=== PATIENT | male | born 1965 | race Caucasian/White ===

== ENCOUNTER 2020-05-21 11:50 | Inpatient (IN) | payer SELFPAY ==
[2020-05-21] VITALS (19 sets, daily range): BP systolic 106–176; BP diastolic 55–121; PULSE 86–109; RESP 10–20; TEMP 36.4–37.3; O2SAT 92–100; BMI 20.9
--- NOTE | 2020-05-21 12:21 | CT_ITS ---
WS: [id number] CT ABDOMEN AND PELVIS WITH CONTRAST HISTORY: abdominal pain, fever TECHNIQUE: Imaging performed of the abdomen and pelvis with IV contrast. Single phase imaging of the abdomen. Coronal and sagittal reformats are submitted. All CT scans at [facility] use at least one of these dose optimization techniques: automated exposure control; mA and/or kV adjustment per patient size (includes targeted exams where dose is matched to clinical indication); or iterativ e reconstruction. IV CONTRAST: Omnipaque 300; 95 mL IV. Oral contrast: No DLP: 253.23 mGy.cm COMPARISON: None available. Lower thorax: Chronic emphysematous changes at the lung bases. Heart is normal size. No hiatal hernia . Liver/biliary system: Normal size with no intrahepatic dilatation. Gallbladder: Normal. No gallstones or wall thickening. No pericholecystic fluid. Pancreas: Edematous pancreas. Pancreatic head and body are poorly visualized and appear edematous. Spleen: Normal. Adrenal glands: Normal. Right kidney: Horseshoe kidney. No obstruction. Left kidney: Horseshoe kidney. No obstruction. 1.5 cm cortical cyst posteriorly. Aorta: Heavy calcification within the abdominal aorta. There is a large amount of mesenteric edema and mild diffuse ascites throughout the abdomen. There ar e several foci of free air scattered within the peritoneal cavity. There is an abnormal appearance to the rectum and the distal sigmoid. There is infiltration of the perirectal fat with edema and also f oci of air. Marked thickening of the sigmoid colon. Possible mass at the rectosigmoid junction. Lymphadenopathy: No definite adenopathy is identified. Lymph nodes would easily be obscured with this amount of edema and peritoneal infiltration. Free fluid: There is mild diffuse ascites. GI tract: Mildly distended loops of small bowel. There is an abnormal appearance of the descending an d sigmoid colon. There is marked wall thickening and edema. Possible mass at the rectosigmoid junctio n. This free air adjacent to the distal colon. Abdominal wall: Unremarkable abdominal wall. No hernia. Pelvis: Minimally distended bladder. Prostate gland calcifications. Bones: Nonacute fracture RIGHT L3 transverse process. CT/CT abdomen pelvis w con* [id number] IMPRESSION: 1. Intraperitoneal free air with diffuse heterogeneous ascites suspicious for peritonitis. 2. Abnormal thickening of the sigmoid colon. Possible mass at the rectosigmoid junction where there is a large amount of air and this may be the site of the perforation. Perforated colon cancer versus severe infection. 3. Edematous pancreas. Pancreas is poorly visualized. 4. Horseshoe kidneys. 5. Additional abnormal enhancement and thickening of the majority of the small bowel and colon. Notified Shannan Fatima MD at 05/21/2020 2:41 PM.
[2020-05-21] MEDS: ondansetron 2 mg/ML SDV 2 mL 4 MG IVP (12:47)
[2020-05-21] MEDS: HYDROmorphone 1 mg/mL INJ 1 mL 0.5 MG IVP (12:47)
[2020-05-21] MEDS: sodium chloride 0.9% 1,000 ML 999 ML IV (12:48)
[2020-05-21 13:04] LABS: Basophils % 0.2 %; Eosinophils % 0.2 %; Hematocrit 45.3 % (42.0-52.0); Hemoglobin 15.1 g/dL (11.7-16.6); Mean Corpuscular HGB Conc 33.3 g/dL (30.0-36.0); Mean Corpuscular Volume 99.1 fL (80-94); Mean Platelet Volume 9.3 fL (7.4-10.4); Monocytes # 0.2 10^3/uL (0.2-0.9); Monocytes % 4.1 %; Neutrophils # 4.09 10^3/uL (1.8-7.7); Neutrophils % 75.6 %; Nucleated Red Blood Cells % 0 %; Platelet Count 231 10^3/cmm (130-400); Red Blood Count 4.57 10^6/uL (4.1-5.3); White Blood Count 5.4 10^3/uL (4.0-10.0)
[2020-05-21 13:17] LABS: Alanine Aminotransferase 20 U/L (0-41); Albumin Level 3.7 g/dL (3.5-5.2); Alkaline Phosphatase 56 IU/L (40-130); Anion Gap 14.1 (5-19); Aspartate Amino Transferase 20 U/L (0-40); Blood Urea Nitrogen 19 mg/dL (6-20); C Reactive Protein 106.5 mg/L (0.0-4.9); Calcium 8.7 mg/dL (8.5-10.5); Carbon Dioxide 26 mmol/L (22-29); Chloride 98 mmol/L (98-107); Globulin 3.6 g/dL (1.3-4.6); Glomerular Filtration Rate 87.6 mL/min (90-130); Glucose 155 mg/dL (65-115); Lipase 12 U/L (13-60); Osmolality Calculated 283 mOsm/kg (285-295); Potassium 4.1 mmol/L (3.5-5.1); Sodium 134 mmol/L (136-145); Total Bilirubin 0.3 mg/dL (0.15-1.2); Total Protein 7.3 g/dL (6.6-8.7)
[2020-05-21 13:19] LABS: Lactic Sepsis W/Reflex 1.2 mmol/L (0.5-2.2)
--- NOTE | 2020-05-21 13:40 | ED_ITS ---
HPI - Abdominal Pain General: Chief Complaint: Abdominal Pain Stated Complaint: ABDOMINAL PAIN/ COVID EXPOSURE Time Seen by Provider: 05/21/20 11:51 History of Present Illness: HPI narrative: This patient is a 55-year-old male presenting with abdominal pain. He said he has been having pain in his stomach for about 3 weeks but it became intolerable today. He thinks he has been running a fever. He has not really had any shortness of breath but has had some cough. He denies nausea vomiting or diarrhea. He has been eating normally and has not had any weight loss. He said he ate something this morning and it did not seem to make his pain any worse. He was tested for COVID on Sunday at [facility] and the results are not available yet. MD elicited complaint: abdominal pain Pertinent past history: none Onset (ago): week(s) (3) Pain Consistency: constant Location: Periumbilical Severity: severe Quality: fullness and sharp Radiation: none Migration to: no migration Relieving factors: nothing Associated Symptoms: Reports diarrhea (Had loose stools after taking a laxative to try to relieve his pain) and fever(s); Denies change in bowel habits and constipation Review of Systems General: Reports: 10 or more systems reviewed and unremarkable except in HPI and below Const: Reports: fever(s) Eyes: Denies: change in vision ENMT: Denies: odynophagia Card: Denies: chest pain or swelling of feet/ankles Resp: Denies: dyspnea, productive cough or non-productive cough GI: Reports: diarrhea (Had loose stools after taking a laxative to try to relieve his pain); Denies: constipation or change in bowel habits : Denies: flank pain Musc: Denies: neck pain or back pain Skin/Breast: Denies: rash Neuro: Denies: headache(s), numbness in extremities or weakness in extremities Nelson/Lymph: Denies: easy bruising or easy bleeding PFSH ED PFSH: Surgical History H/O elbow surgery Social History Smoking and tobacco status: current every day smoker Alcohol intake: former Substance/Drug Use: current Substance/Drug use frequency: daily Substance/Drug use type: Marijuana Physical Exam Const: COMMON NORMALS: patient oriented x3, no limitations and alert GENERAL APPEARANCE: cooperative HENMT: HEAD & SCALP: normal to inspection FACE & SINUS: normal facial exam Eye: GENERAL EYE: appearance normal, both eyes and all related structures Neck/C-Spine: COMMON NORMALS: supple, no meningeal signs and no JVD Chest: COMMONS NORMALS: normal inspection of the chest Resp: COMMON NORMALS: normal respiratory effort, No use of accessory muscles and clear to auscultation bilaterally AUSCULTATION: clear to auscultation bilaterally Cardio: COMMON NORMALS: no JVD, regular rate, regular rhythm and No murmurs present (Cardio) RATE: regular rate RHYTHM: regular rhythm GI: AUSCULTATION: Yes Absent bowel sounds PALPATION: Yes Firmness to palpation present (GI), Yes Tenderness to palpation present (GI) (Severe pain to even light touch) and Yes Guarding due to palpation present (GI) Back/Pelvis: COMMON NORMALS: thoracic and lumbar spine normal to inspection Extremity: COMMON NORMALS: normal to inspection Neuro: COMMON NORMALS: patient oriented x3, moves all extremities, no focal motor deficits and no sensory deficits noted SENSORIUM/ORIENTATION: Yes alert MENINGEAL SIGNS: Yes no meningeal signs Psych: COMMON NORMALS: mental status grossly normal, cooperative and normal affect Skin: COMMON NORMALS: no rashes or lesions noted and turgor normal GENERAL SKIN EXAM: no rashes or lesions noted and turgor normal Course ED course: This patient presented with severe abdominal pain. He has had some fevers. His pains been going on for about 3 weeks but worsened suddenly today. CT shows free air and peritonitis with blood or peritoneal fluid on the CT. His labs are surprisingly good but he clinically looks quite ill. He was given antibiotics, fluids I consulted with surgery. We were able to hold the OR from starting a next case so that he could go emergently. Vital Signs: Vital signs: Vital Signs Temperature 98.7 F 05/24/20 11:37 Pulse Rate 78 05/24/20 11:37 Respiratory Rate 18 05/24/20 11:37 Blood Pressure 112/69 05/24/20 11:37 Pulse Oximetry 94 05/24/20 11:37 MDM - Abdominal Pain Lab Data: Labs: Lab Results 09/18/20 09/18/20 09/18/20 Range/Units 12:49 12:49 12:49 WBC 5.4 (4.0-10.0) 10^3/ uL RBC 4.57 (4.1-5.3) 10^6/u L Hgb 15.1 (11.7-16.6) g/dL Hct 45.3 (42.0-52.0) % MCV 99.1 H (80-94) fL MCH 33.0 (28.0-34.0) pg MCHC 33.3 (30.0-36.0) g/dL RDW 12.0 L (12.1-15.1) % Plt Count 231 (130-400) 10^3/c mm MPV 9.3 (7.4-10.4) fL Neut % (Auto) 75.6 % Lymph % (Auto) 19.0 % [place] % (Auto) 4.1 % Eos % (Auto) 0.2 % Baso % (Auto) 0.2 % Neut # (Auto) 4.09 (1.8-7.7) 10^3/u L Lymph # (Auto) 1.0 (0.8-4.8) 10^3/u L [place] # (Auto) 0.2 (0.2-0.9) 10^3/u L Eos # (Auto) 0.0 (0.0-0.8) 10^3/u L Baso # (Auto) 0.0 (0.0-0.1) 10^3/u L Nucleated RBC % (a uto) 0 % Nucleated RBCs # 0.0 /100WBC Sodium 134 L (136-145) mmol/L Potassium 4.1 (3.5-5.1) mmol/L Chloride 98 (98-107) mmol/L Carbon Dioxide 26 (22-29) mmol/L Anion Gap 14.1 (5-19) BUN 19 (6-20) mg/dL Creatinine 0.9 (0.7-1.2) mg/dL GFR Calculation 87.6 L (90-130) mL/min Glucose 155 H (65-115) mg/dL Calculated Osmolal ity 283 L (285-295) mOsm/k g Lactic Acid 1.2 (0.5-2.2) mmol/L Calcium 8.7 (8.5-10.5) mg/dL Total Bilirubin 0.3 (0.15-1.2) mg/dL AST 20 (0-40) U/L ALT 20 (0-41) U/L Alkaline Phosphata se 56 (40-130) IU/L C-Reactive Protein 106.5 H (0.0-4.9) mg/L Total Protein 7.3 (6.6-8.7) g/dL Albumin 3.7 (3.5-5.2) g/dL Globulin 3.6 (1.3-4.6) g/dL Lipase 12 L (13-60) U/L Urine Color (Yellow) Urine Appearance (CLEAR) Urine pH (5-7) Ur Specific [place] (1.005-1.030) Urine Protein (Negative) Urine Glucose (UA) (Normal) Urine Ketones (Negative) Urine Blood (Negative) Urine Nitrate (Negative) Urine Bilirubin (Negative) Urine Urobilinogen (Negative) mg/dL Ur Leukocyte [place] ase (Negative) SARS-CoV-2 Ag (Rap id) (Negative) 05/21/20 05/21/20 Range/Units 14:38 14:48 WBC (4.0-10.0) 10^3/ uL RBC (4.1-5.3) 10^6/u L Hgb (11.7-16.6) g/dL Hct (42.0-52.0) % MCV (80-94) fL MCH (28.0-34.0) pg MCHC (30.0-36.0) g/dL RDW (12.1-15.1) % Plt Count (130-400) 10^3/c mm MPV (7.4-10.4) fL Neut % (Auto) % Lymph % (Auto) % [place] % (Auto) % Eos % (Auto) % Baso % (Auto) % Neut # (Auto) (1.8-7.7) 10^3/u L Lymph # (Auto) (0.8-4.8) 10^3/u L [place] # (Auto) (0.2-0.9) 10^3/u L Eos # (Auto) (0.0-0.8) 10^3/u L Baso # (Auto) (0.0-0.1) 10^3/u L Nucleated RBC % (a uto) % Nucleated RBCs # /100WBC Sodium (136-145) mmol/L Potassium (3.5-5.1) mmol/L Chloride (98-107) mmol/L Carbon Dioxide (22-29) mmol/L Anion Gap (5-19) BUN (6-20) mg/dL Creatinine (0.7-1.2) mg/dL GFR Calculation (90-130) mL/min Glucose (65-115) mg/dL Calculated Osmolal ity (285-295) mOsm/k g Lactic Acid (0.5-2.2) mmol/L Calcium (8.5-10.5) mg/dL Total Bilirubin (0.15-1.2) mg/dL AST (0-40) U/L ALT (0-41) U/L Alkaline Phosphata se (40-130) IU/L C-Reactive Protein (0.0-4.9) mg/L Total Protein (6.6-8.7) g/dL Albumin (3.5-5.2) g/dL Globulin (1.3-4.6) g/dL Lipase (13-60) U/L Urine Color Yellow (Yellow) Urine Appearance Clear (CLEAR) Urine pH 5 (5-7) Ur Specific [place]it y 1.010 (1.005-1.030) Urine Protein Neg (Negative) Urine Glucose (UA) Norm (Normal) Urine Ketones 1+ H (Negative) Urine Blood Neg (Negative) Urine Nitrate Negative (Negative) Urine Bilirubin Neg (Negative) Urine Urobilinogen 1 H (Negative) mg/dL Ur Leukocyte [place] ase Negative (Negative) SARS-CoV-2 Ag (Rap id) Negative (Negative) Discharge Plan Discharge Admit Provider: Edd Oh Discharge Date/Time: 05/21/20 16:17 Coding Level of Care Code ED Alumni Relations Officer for [facility] Fwd Exam Comprehensive
--- NOTE | 2020-05-21 14:05 | PC.NURSE ---
REPORT RECEIVED FROM [facility].
[2020-05-21] MEDS: iohexol 300 mg/mL 100 mL Btl IV (14:19)
[2020-05-21 15:05] LABS: Add Urine Microscopic? NO
[2020-05-21 15:07] LABS: Bilirubin Urine Neg (Negative); Blood Urine Neg (Negative); Glucose Urine UA Norm (Normal); Ketones Urine 1+ (Negative); Leukocyte Esterase Urine Negative (Negative); Nitrate Urine Negative (Negative); Protein Urine Neg (Negative); Urine Appearance Clear (CLEAR); Urine Color Yellow (Yellow); Urobilinogen Urine 1 mg/dL (Negative); pH Urine 5 (5-7)
--- NOTE | 2020-05-21 15:30 | PM.HP ---
Providers/Chief Complaint Admitting Physician: Edd Oh MD Chief Complaint: ABDOMINAL PAIN/ COVID EXPOSURE History of Present Illness Chief Complaint: Abdominal pain History of present illness: Mr. Jean Carlos Haskins is a 55 year old male worsening abdominal pain as he has been having pain for the past 2 weeks. As of today patient's symptoms got worse and he came to the emergency department with diffuse abdominal pain nothing seems to make it better or worse and undergone a CT scan of the abdomen and pelvis with descriptions below. He reports fevers and chills and he was tested for COVID 19 as a rapid test that came back negative Patient reports that he never had a colonoscopy before General surgery was consulted for further evaluation potential intervention CT scan of the abdomen and pelvis: Lower thorax: Chronic emphysematous changes at the lung bases. Heart is normal size. No hiatal hernia. Liver/biliary system: Normal size with no intrahepatic dilatation. Gallbladder: Normal. No gallstones or wall thickening. No pericholecystic fluid. Pancreas: Edematous pancreas. Pancreatic head and body are poorly visualized and appear edematous. Spleen: Normal. Adrenal glands: Normal. Right kidney: Horseshoe kidney. No obstruction. Left kidney: Horseshoe kidney. No obstruction. 1.5 cm cortical cyst posteriorly. Aorta: Heavy calcification within the abdominal aorta. There is a large amount of mesenteric edema and mild diffuse ascites throughout the abdomen. There are several foci of free air scattered within the peritoneal cavity. There is an abnormal appearance to the rectum and the distal sigmoid. There is infiltration of the perirectal fat with edema and also foci of air. Marked thickening of the sigmoid colon. Possible mass at the rectosigmoid junction. Lymphadenopathy: No definite adenopathy is identified. Lymph nodes would easily be obscured with this amount of edema and peritoneal infiltration. Free fluid: There is mild diffuse ascites. GI tract: Mildly distended loops of small bowel. There is an abnormal appearance of the descending and sigmoid colon. There is marked wall thickening and edema. Possible mass at the rectosigmoid junction. This free air adjacent to the distal colon. Abdominal wall: Unremarkable abdominal wall. No hernia. Pelvis: Minimally distended bladder. Prostate gland calcifications. Bones: Nonacute fracture RIGHT L3 transverse process. CT/CT abdomen pelvis w con* [id number] IMPRESSION: 1. Intraperitoneal free air with diffuse heterogeneous ascites suspicious for peritonitis. 2. Abnormal thickening of the sigmoid colon. Possible mass at the rectosigmoid junction where there is a large amount of air and this may be the site of the perforation. Perforated colon cancer versus severe infection. 3. Edematous pancreas. Pancreas is poorly visualized. 4. Horseshoe kidneys. 5. Additional abnormal enhancement and thickening of the majority of the small bowel and colon. Patient was seen in the emergency department room #13 Review of Systems General: Reports: 10 or more systems reviewed and unremarkable except in HPI and below Medications/Allergies Home Medications Medication Instructions Recorded Confirmed Last Taken Type No Known Home Medications 05/21/20 05/21/20 Unknown History Allergies Allergy/AdvReac Type Severity Reaction Status Date / Time No Known Allergies Allergy Unverified 05/21/20 15:41 PFSH Acute PFSH: Surgical History H/O elbow surgery Social History Smoking and tobacco status: current every day smoker Alcohol intake: former Substance/Drug Use: current Substance/Drug use frequency: daily Substance/Drug use type: Marijuana Vitals/I&O/Wt Last Vital Signs Temp 97.5 F L 05/21/20 11:51 Pulse 97 05/21/20 14:02 Resp 18 05/21/20 14:02 BP 106/55 05/21/20 14:02 Pulse Ox 95 05/21/20 14:04 Weight last 48 hrs Weight 150 lb Physical Exam Narrative: EXAM NARRATIVE: Patient is conscious alert oriented X3 BMI 21 Head and neck examination PERRLA no masses no cervical lymphadenopathy no jaundice Cardiac examination audible S1-S2 no murmurs no gallops no arrhythmias Chest is clear bilateral,abscence of Rhonchi or wheezes,no surgical emphysema Abdomen diffusely tender with guarding,rigidity;signs of peritonitis Extremities no cyanosis no clubbing no edema Data : 05/21/20 12:49 05/21/20 12:49 A&P Assessment and plan (1) Perforated viscus: After history taking physical examination and reviewing the chart with my personal interpretation of the CT scan images likely the patient had a perforated sigmoid colon mass,concerning particularly that the patient never had a colonoscopy before. We will plan to perform an urgent diagnostic laparoscopy possible laparotomy possible bowel resection possible colostomy. Assurance and education All questions have been answered and all concerns have been addressed to patient's satisfaction. Status: Acute Attestations Medical Necessity Statement*: Expecting hospitalization past 2 midnights for continuity of medical and surgical care Time Spent in Patient Care: (>than 50% of time spent in counselling and/or direct pt care on unit). Coding Level of Care Code Acute Patient Service Rep for [facility] Fwd Diagnoses Perforated viscus R19.8
[2020-05-21 15:31] LABS: SARS Covid-2 Antigen Negative (Negative)
[2020-05-21] MEDS: ceFOXitin 2,000 MG in sodium chloride 0.9% (plus) 50 ML 100 MG IV (15:42)
--- NOTE | 2020-05-21 15:51 | ANES.PREANE2 ---
Pre-Anesthetic Assessment Pre-Anesthetic Assessment: Height/Weight: Height 1.8 m Weight 68.039 kg Temp Pulse Resp BP Pulse Ox 97.5 F L 106 H 14 127/79 92 05/21/20 11:51 05/21/20 15:41 05/21/20 15:41 05/21/20 15:41 05/21/20 15:41 Preop Diagnosis: perforated bowel Proposed Procedure: Operation Date: 05/21/20 16:00 Proposed Procedures p Exploratory Laparotomy poss.....?...(for perfed bowel)(Not Applicable) - Edd Oh MD Familial anesthetic complications: none Was Beta Beni taken within 24 hours: N/A Last intake: Intake Last Liquid Date 05/21/20 Last Liquid Time 15:25 Last Solid Date 05/21/20 Last Solid Time 08:00 Social: Social History: Tobacco Comment: marijuana last week Exam: Pre-Anes Outpt Exam: alert, oriented x 3, clear to auscultation bilaterally and regular rate & rhythm Airway: Cervical ROM: WNL MP: 2 Dentition: False Pulmonary: Comments: Emphysematous changes seen on CT, O2 sat 90% on room air, but patient denies baseline SOB. 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) Anesthetic Plan: ASA status: 2E Anesthesia: General Risk of > 500 ml blood loss (7ml/kg in children): No PFSH Anesthesia PFSH: Surgical History H/O elbow surgery Social History Smoking and tobacco status: current every day smoker Alcohol intake: former Substance/Drug Use: current Substance/Drug use frequency: daily Substance/Drug use type: Marijuana Data Anesthesia CBC & Chem 7: 05/21/20 12:49 05/21/20 12:49 Other Labs: Laboratory Results - last 48 hr 05/21/20 05/21/20 05/21/20 12:49 12:49 12:49 WBC 5.4 RBC 4.57 Hgb 15.1 Hct 45.3 MCV 99.1 H MCH 33.0 MCHC 33.3 RDW 12.0 L Plt Count 231 MPV 9.3 Neut % (Auto) 75.6 Lymph % (Auto) 19.0 [place] % (Auto) 4.1 Eos % (Auto) 0.2 Baso % (Auto) 0.2 Neut # (Auto) 4.09 Lymph # (Auto) 1.0 [place] # (Auto) 0.2 Eos # (Auto) 0.0 Baso # (Auto) 0.0 Nucleated RBC % (auto) 0 Nucleated RBCs # 0.0 Sodium 134 L Potassium 4.1 Chloride 98 Carbon Dioxide 26 Anion Gap 14.1 BUN 19 Creatinine 0.9 GFR Calculation 87.6 L Glucose 155 H Calculated Osmolality 283 L Lactic Acid 1.2 Calcium 8.7 Total Bilirubin 0.3 AST 20 ALT 20 Alkaline Phosphatase 56 C-Reactive Protein 106.5 H Total Protein 7.3 Albumin 3.7 Globulin 3.6 Lipase 12 L Urine Color Urine Appearance Urine pH Ur Specific [place] Urine Protein Urine Glucose (UA) Urine Ketones Urine Blood Urine Nitrate Urine Bilirubin Urine Urobilinogen Ur Leukocyte Esterase SARS-CoV-2 Ag (Rapid) 05/21/20 05/21/20 14:38 14:48 WBC RBC Hgb Hct MCV MCH MCHC RDW Plt Count MPV Neut % (Auto) Lymph % (Auto) [place] % (Auto) Eos % (Auto) Baso % (Auto) Neut # (Auto) Lymph # (Auto) [place] # (Auto) Eos # (Auto) Baso # (Auto) Nucleated RBC % (auto) Nucleated RBCs # Sodium Potassium Chloride Carbon Dioxide Anion Gap BUN Creatinine GFR Calculation Glucose Calculated Osmolality Lactic Acid Calcium Total Bilirubin AST ALT Alkaline Phosphatase C-Reactive Protein Total Protein Albumin Globulin Lipase Urine Color Yellow Urine Appearance Clear Urine pH 5 Ur Specific [place] 1.010 Urine Protein Neg Urine Glucose (UA) Norm Urine Ketones 1+ H Urine Blood Neg Urine Nitrate Negative Urine Bilirubin Neg Urine Urobilinogen 1 H Ur Leukocyte Esterase Negative SARS-CoV-2 Ag (Rapid) Negative Cardiac Studies: No Data to Display
[2020-05-21] MEDS: lidocaine 2% INJ 20 mL INJECTION (19:05)
--- NOTE | 2020-05-21 19:20 | P.OP_ITS ---
Operative Report Date of procedure: May 21, 2020 Pre-op Diagnosis: perforated bowel Post-op diagnosis: other Post-op Diagnosis: Sealed rectosigmoid perforation without evidence of perforation intraoperatively detected as rectosigmoid junction frozen to the left lateral pelvic wall Procedure Done: Diagnostic laparoscopy with copious peritoneal lavage and intra- abdominal drain placement Implants: 19 Mauritian round Humberto drains Drain #1 towards the pelvis located at the right lower quadrant Drain #2 towards the right upper quadrant suprahepatic Specimens removed/disposition: None Surgeon: Edd Oh Senior Report Developer: Surgical mina Patel Circulating nurse Queenie Anesthesia: General (Ingrid Tabares) Estimated blood loss (mL): 20 IV fluids (mL): 2,000 Urine output (mL): 100 Condition: stable Disposition: floor Brief History: This is a pleasant 55 years old gentleman presented to the emergency department with worsening abdominal pain and patient reports that he has been having pain for the past 2 weeks used to have large bowel movement and sometimes is a small bowel movement with some bloody specks depends how often and how much he eats. Patient reports that he never had a colonoscopy. As his pain got worse came to the ER CT scan of the abdomen and pelvis was done that showed pneumoperitoneum in the presence of clinical picture of peritonitis. 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 Martell radiologist about her concern of colon cancer yet she referred to that by the thickness of the rectum also I did appreciate bulkier stools and I was concerned about stercoral perforation. An informed consent per chart Procedure: Patient was identified in the holding area was brought to the operating room and was placed in a supine position on the operating room table.General endotracheal anesthesia was induced.Timeout was done verifying the patient's name/date of /planned procedure and destination after the procedure, all were in agreement.SCDs confirmed to be functioning,preoperative antibiotics administered per protocol, and beta adeline protocol was confirmed. Both arms were tucked and shoulder supports were placed and all pressure points were padded. Arndt catheter was inserted revealing clear urine. The abdomen was prepped and draped in a sterile fashion. Started by longitudinal skin incision supraumbilical using a Duarte trocar technique safe entry to the abdominal cavity was achieved verified by using 10 mm zero degree laparoscopy, switched to a 30? scope, a 5 mm trocar was inserted at the right lower direct visualization, followed by a 5 mm trocar was inserted at the right upper quadrant under direct visualization and another 5 mm trocar was inserted to the left side of the abdomen under direct visualization. There was evidence of extensive peritonitis towards the pelvic wall as well as the upper abdominal peritoneal lining. There was no evidence of carcinomatosis or liver involvement with any nodules concerning for neoplastic process. There was evidence of pus towards the left paracolic gutter and the pelvis as well as perisplenic and perihepatic and right paracolic gutter.Started by dissecting the left side of the colon after placing the patient in T. Conley position and there was no evidence of any obvious perforation.The distal sigmoid region with its junction of the proximal rectal was adherent to the lateral pelvic wall and being frozen in an attempt to peel it off likely an underlying perforation was sealed off. Rectosigmoid segment was scarred down to the lateral pelvic wall that further dissection would increase the potential risk of injury to nearby structures including ureter thus I aborted at this point and I elected to irrigate and plac e drains. There was a evidence of diverticulum towards the mid portion of the rectum but there was no evidence of perforation, the colon wall appeared to be thickened but there were no masses appreciated. There was no evidence of any air bubbles under waterseal, I did perform thorough examination of the Rectosigmoid segment and there was no evidence of any perforation detected apart from the walled/sealed lateral rectosigmoid portion to the lateral pelvic wall. A [id number] 2-0 silk suture was placed over the rectosigmoid region at 3 o'clock position as there was some oozing.I elected to perform copious irrigation of the whole entire abdominal cavity and pelvis using around 11 L of warm saline. No ongoing bleeding or other problems were seen anywhere in the abdomen,the remaining of the viscera looked viable appendix looked normal and the nearby small bowel looked inflamed due to its vicinity of the potential underlying perforation of the rectosigmoid area.A flex sigmoidoscopy was considered yet giving the amount and bulk of stools on the CT scan of the rectum and the colon I did feel it would not be of any benefit. A 19 Mauritian round Humberto drain was placed under direct visualization towards the pelvic region through the right lower quadrant 5 mm trocar. Followed by another 19 Mauritian round Humberto drain towards the suprahepatic area that was introduced under direct visualization through the right upper quadrant 5 mm trocar.Both drains were secured to the skin. A fascial closure device was used #1 PDS to close the supra umbilical fascial defect under direct visualization. All trocars were taken out under direct visualization and all trocar sites were closed by skin kenji, dressing was applied Counts of sponges, needles and instruments were completed at the end of the procedure. Patient tolerated the procedure well and got extubated and was taken directly to the intensive care unit. I was present for the whole entire procedure.
--- NOTE | 2020-05-21 20:30 | PM.PACU ---
PACU note Post-Anesthesia Exam: awake and vital signs stable Disposition: admitted
[2020-05-21] MEDS: lanolin oint 7 gm 1 APPLIC TOPICAL (21:46)
[2020-05-21] MEDS: famotidine 20 mg/2 mL INJ IVP (21:46)
[2020-05-21] MEDS: piperacillin-tazobactam 3.375 GM in sodium chloride 0.9% (plus) 50 ML IV (21:48)
[2020-05-21] MEDS: lactated ringers 1,000 ML 150 ML IV (22:06)
[2020-05-22] VITALS (8 sets, daily range): BP systolic 107–130; BP diastolic 68–78; PULSE 85–99; RESP 16–18; TEMP 36.8–37.3; O2SAT 90–98
[2020-05-22] MEDS: heparin 5,000 unit/mL INJ 1 mL 5000 UNIT SUBCUT ×2 (03:20→14:00)
[2020-05-22] MEDS: lactated ringers 1,000 ML 150 ML IV ×3 (04:39→17:34)
[2020-05-22] MEDS: piperacillin-tazobactam 3.375 GM in sodium chloride 0.9% (plus) 50 ML IV ×3 (05:20→21:41)
[2020-05-22 05:31] LABS: Hematocrit 44.6 % (42.0-52.0); Hemoglobin 14.6 g/dL (11.7-16.6)
[2020-05-22 06:04] LABS: Carcinoembryonic Antigen 3.9 ng/mL (0.0-4.7)
[2020-05-22 06:17] LABS: Anion Gap 15.6 (5-19); Blood Urea Nitrogen 18 mg/dL (6-20); Calcium 7.4 mg/dL (8.5-10.5); Carbon Dioxide 24 mmol/L (22-29); Chloride 103 mmol/L (98-107); Creatinine Clr Calc Pharmacy 77.6973; Glomerular Filtration Rate 69.5 mL/min (90-130); Glucose 124 mg/dL (65-115); Osmolality Calculated 289 mOsm/kg (285-295); Potassium 4.6 mmol/L (3.5-5.1); Sodium 138 mmol/L (136-145)
--- NOTE | 2020-05-22 06:18 | P.PN_ITS ---
Subjective Subjective: Interval history: Patient overall feels better and had appropriate urine output overnight No bowel activities yet. Vitals/I&O/Wt Last Vital Signs Temp 98.9 F 05/22/20 03:58 Pulse 93 05/22/20 03:58 Resp 18 05/22/20 03:58 BP 130/76 05/22/20 03:58 Pulse Ox 97 05/22/20 03:58 05/21/20 05/21/20 05/22/20 14:59 22:59 06:59 Intake Total 300 / 300 1032.5 / 1332.5 Output Total 1120 / 1120 585 / 1705 Balance -820 / -820 447.5 / -372.5 Weight last 48 hrs Weight 150 lb Physical Exam Narrative: EXAM NARRATIVE: Patient is conscious alert oriented X3 BMI 21 Head and neck examination PERRLA no masses no cervical lymphadenopathy no jaundice Cardiac examination audible S1-S2 no murmurs no gallops no arrhythmias Chest is clear bilateral,abscence of Rhonchi or wheezes,no surgical emphysema Abdomen nontender except mildly at the incision sites and drain sites. Nondistended soft no organomegaly guarding or rigidity/no signs of peritonitis Right and lower quadrant drains shows serous output Arndt catheter in place with clear urine Extremities no cyanosis no clubbing no edema Urinary Catheter Management^: Arndt: Cath Placed During This Visit: yes Urinary Catheter Date of Insertion: 05/21/20 Urinary Catheter Time of Insertion: 17:56 Data : 05/23/20 04:25 05/23/20 04:25 A&P Assessment and plan (1) Perforated viscus: Patient is a status post diagnostic laparoscopy and peritoneal lavage with intra-abdominal drain placements. 05/21/2020. Plan of care; Review the pathology with the patient and future requirement of colonoscopy once he recovers. Encourage ambulation 3-4 times a day down the santos at least 200 to 300 feet each time. Incentive spirometer every hour will awake Continue pharmacologic DVT prophylax We will continue Arndt catheter now for accurate measurement of urine output Will continue IV antimicrobial therapy due to the nature of the patient's pathology Will continue Arndt catheter for accurate measurement of urine output Assurance and education All questions have been answered Status: Acute Attestations Medical Necessity Statement*: Medical necessity care is expected to cross 2 midnights because of requirement of IV antimicrobial therapy,and awaiting bowel functions. Time Spent in Patient Care: (>than 50% of time spent in counselling and/or direct pt care on unit) . 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
[2020-05-22] MEDS: morphine 4 mg/mL SDV 1 mL IVP ×3 (06:25→21:06)
--- NOTE | 2020-05-22 08:19 | ANE.PACU2 ---
Inpatient post-anesthesia follow up: Airway intact: Yes Vital signs: Temperature 98.3 F Pulse Rate [Monito r] 89 Pulse Rate 99 Respiratory Rate 18 Blood Pressure [Ri ght Arm] 113/56 Blood Pressure 112/68 Pulse Oximetry 93 Oxygen Delivery Me thod Room Air Oxygen Flow Rate 1 Fraction of Inspir ed Oxygen Hydration adequate: Yes Nausea and vomiting: No Pain level: 2 Mental status: Baseline
[2020-05-22] MEDS: famotidine 20 mg/2 mL INJ IVP ×2 (08:54→21:06)
--- NOTE | 2020-05-22 18:13 | PC.NURSE ---
SHIFT SUMMARY PATIENT HAS AMBULATED SEVERAL TIMES TODAY AROUND THE WHOLE FLOOR. PATIENT STILL HAS HYPOACTIVE BOWEL SOUNDS. 120ML OF SEROUSANGUINOUS OUTPUT IN THE RIGHT LOWER ZAINAB DRAIN AND 60ML IN THE UPPER ONE. PATIENT HAD AROUND 700ML OF URINE OUTPUT. LOW GRADE TEMP THIS AFTERNOON. PATIENT THEN PRODUCTIVELY COUGHED AND CONTINUED TO USE INCENTIVE SPIROMETER. CONTINUE TO MONITOR.
[2020-05-23] VITALS (8 sets, daily range): BP systolic 121–136; BP diastolic 63–77; PULSE 85–105; RESP 14–20; TEMP 37.2–37.6; O2SAT 91–98
[2020-05-23] MEDS: lactated ringers 1,000 ML 150 ML IV ×2 (00:47→06:27)
[2020-05-23] MEDS: heparin 5,000 unit/mL INJ 1 mL 5000 UNIT SUBCUT ×2 (03:24→13:52)
[2020-05-23 04:56] LABS: Hematocrit 36.7 % (42.0-52.0); Hemoglobin 12.1 g/dL (11.7-16.6)
[2020-05-23 05:26] LABS: Anion Gap 11.2 (5-19); Blood Urea Nitrogen 18 mg/dL (6-20); Calcium 8.2 mg/dL (8.5-10.5); Carbon Dioxide 26 mmol/L (22-29); Chloride 102 mmol/L (98-107); Creatinine Clr Calc Pharmacy 77.6973; Glomerular Filtration Rate 69.5 mL/min (90-130); Glucose 97 mg/dL (65-115); Osmolality Calculated 282 mOsm/kg (285-295); Potassium 4.2 mmol/L (3.5-5.1); Sodium 135 mmol/L (136-145)
--- NOTE | 2020-05-23 06:13 | PM.PN ---
Subjective Subjective: Interval history: Patient overall feels well and denies any complaints. Continues to have good urine output per Arndt catheter. Serous output per drains. Vitals/I&O/Wt Last Vital Signs Temp 99.6 F 05/23/20 04:37 Pulse 97 05/23/20 04:37 Resp 16 05/23/20 04:37 BP 121/66 05/23/20 04:37 Pulse Ox 98 05/23/20 04:37 05/22/20 05/22/20 05/23/20 14:59 22:59 06:59 Intake Total 687.5 / 687.5 1050 / 1737.5 1050 / 2787.5 Output Total 180 / 180 1390 / 1570 560 / 2130 Balance 507.5 / 507.5 -340 / 167.5 490 / 657.5 Weight last 48 hrs Weight 150 lb Physical Exam Narrative: EXAM NARRATIVE: Patient is conscious alert oriented X3 BMI 21 Head and neck examination PERRLA no masses no cervical lymphadenopathy no jaundice Cardiac examination audible S1-S2 no murmurs no gallops no arrhythmias Chest is clear bilateral,abscence of Rhonchi or wheezes,no surgical emphysema Abdomen nontender except mildly at the incision sites and drain sites. Nondistended soft no organomegaly guarding or rigidity/no signs of peritonitis Right and lower quadrant drains shows serous output. Dressing is taken down and skin incisions are clean dry and intact Arndt catheter in place with clear urine Extremities no cyanosis no clubbing no edema Urinary Catheter Management^: Arndt: Cath Placed During This Visit: yes Reason for Continuing Indwelling Catheter: Acute Urinary Retention or Obstruction Urinary Catheter Date of Insertion: 05/21/20 Urinary Catheter Time of Insertion: 17:56 Data : 05/23/20 04:25 05/23/20 04:25 A&P Assessment and plan (1) Perforated viscus: Patient is a status post diagnostic laparoscopy and peritoneal lavage with intra-abdominal drain placements. 05/21/2020. Plan of care; DC Arndt catheter Encourage ambulation 3-4 times a day down the santos at least 200 to 300 feet each time. Incentive spirometer every hour will awake Continue pharmacologic DVT prophylax Will continue IV antimicrobial therapy due to the nature of the patient's pathology Once patient starts to have bowel activity will start him on popsicle Assurance and education All questions have been answered Status: Acute Attestations Medical Necessity Statement*: Patient will require inpatient hospitalization past 2 midnights to continue IV antimicrobial therapy and to await for bowel functions. Time Spent in Patient Care: 16 - 35 minutes (>than 50% of time spent in counselling and/or direct pt care on unit). 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
[2020-05-23] MEDS: piperacillin-tazobactam 3.375 GM in sodium chloride 0.9% (plus) 50 ML IV ×3 (06:27→22:14)
[2020-05-23] MEDS: dextrose 5%-sod chloride 0.45% 1,000 ML 125 ML IV ×3 (06:55→22:15)
[2020-05-23] MEDS: famotidine 20 mg/2 mL INJ IVP ×2 (08:28→21:09)
[2020-05-23] MEDS: morphine 4 mg/mL SDV 1 mL IVP (22:36)
[2020-05-24] VITALS: BP 131/80; PULSE 86; RESP 18; TEMP 36.9; O2SAT 92
[2020-05-24] MEDS: heparin 5,000 unit/mL INJ 1 mL 5000 UNIT SUBCUT ×2 (02:57→15:09)
[2020-05-24 04:00] VITALS: BP 127/74; PULSE 83; RESP 18; TEMP 37.1; O2SAT 93
[2020-05-24 04:16] LABS: Hematocrit 36.3 % (42.0-52.0); Hemoglobin 12.1 g/dL (11.7-16.6)
[2020-05-24 04:43] LABS: Anion Gap 10.6 (5-19); Blood Urea Nitrogen 13 mg/dL (6-20); Carbon Dioxide 26 mmol/L (22-29); Chloride 102 mmol/L (98-107); Glomerular Filtration Rate 77.6 mL/min (90-130); Glucose 122 mg/dL (65-115); Osmolality Calculated 281 mOsm/kg (285-295); Potassium 3.6 mmol/L (3.5-5.1); Sodium 135 mmol/L (136-145)
--- NOTE | 2020-05-24 05:32 | PM.PN ---
Subjective Subjective: Interval history: Patient overall is feeling better Drain #1 right lower quadrant has 40 and drain #2 right upper quadrant had 10 serous output Good urine output Did not pass gas yet but he feels like having some activity Vitals/I&O/Wt Last Vital Signs Temp 98.8 F 05/24/20 04:00 Pulse 83 05/24/20 04:00 Resp 18 05/24/20 04:00 BP 127/74 05/24/20 04:00 Pulse Ox 93 05/24/20 04:00 05/23/20 05/23/20 05/24/20 14:59 22:59 06:59 Intake Total 918.75 / 918.75 1050 / 1968.75 Output Total 370 / 370 1230 / 1600 875 / 2475 Balance 548.75 / 548.75 -180 / 368.75 -875 / -506.25 Physical Exam Narrative: EXAM NARRATIVE: EXAM NARRATIVE: Patient is conscious alert oriented X3 BMI 21 Head and neck examination PERRLA no masses no cervical lymphadenopathy no jaundice Cardiac examination audible S1-S2 no murmurs no gallops no arrhythmias Chest is clear bilateral,abscence of Rhonchi or wheezes,no surgical emphysema Abdomen nontender except mildly at the incision sites and drain sites. Nondistended soft no organomegaly guarding or rigidity/no signs of peritonitis Right and lower quadrant drains shows serous output. skin incisions are clean dry and intact Extremities no cyanosis no clubbing no edema Urinary Catheter Management^: Arndt: Cath Placed During This Visit: yes, but has since been removed by the nurse Reason for Continuing Indwelling Catheter: Decision to DC Catheter Urinary Catheter Date of Insertion: 05/21/20 Urinary Catheter Time of Insertion: 17:56 Date Urinary Catheter Removed: 05/23/20 Time Urinary Catheter Discontinued: 06:42 Data : 05/24/20 03:30 05/24/20 03:30 A&P Assessment and plan (1) Perforated viscus: Patient is a status post diagnostic laparoscopy and peritoneal lavage with intra-abdominal drain placements. 05/21/2020. Plan of care; We will start the patient on popsicle Continue ambulation 3-4 times a day down the santos at least 200 to 300 feet each time. Incentive spirometer every hour will awake Continue pharmacologic DVT prophylax Awaiting bowel function Will continue IV antimicrobial therapy due to the nature of the patient's pathology Assurance and education All questions have been answered Status: Acute Attestations Medical Necessity Statement*: Patient will require inpatient hospitalization pass 2 midnights to continue IV antimicrobial therapy and to await for bowel functions. Time Spent in Patient Care: 16 - 35 minutes (>than 50% of time spent in counselling and/or direct pt care on unit). 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
[2020-05-24] MEDS: dextrose 5%-sod chloride 0.45% 1,000 ML 125 ML IV ×3 (05:46→21:59)
[2020-05-24] MEDS: piperacillin-tazobactam 3.375 GM in sodium chloride 0.9% (plus) 50 ML IV ×3 (05:46→21:27)
--- NOTE | 2020-05-24 06:16 | PC.NURSE ---
SHIFT SUMMARY Pt had 20 mL of output through right upper ginette drain and 100 mL of output through right lower ginette drain. Good urine output. Pt recieved morphine 1 time this shift and rested comfortably throughout night. Per Dr. Oh, pt is able to begin to have popsicles. pt received one this shift and tolerated well. VSS. Will continue to monitor.
[2020-05-24 07:41] VITALS: BP 114/67; PULSE 75; RESP 18; TEMP 37.1; O2SAT 93
[2020-05-24] MEDS: famotidine 20 mg/2 mL INJ IVP ×2 (08:37→21:15)
[2020-05-24 11:37] VITALS: BP 112/69; PULSE 78; RESP 18; TEMP 37.1; O2SAT 94
--- NOTE | 2020-05-24 13:43 | PC.NURSE ---
Rounding - Patient encouraged to ambulate. Agreed to ambulate in halls. Drains emptied and recorded. #1 drain is right upper Quad and drained 30ml. #2 is Right Lower Quad and drained 45ml amounts recorded in i&O. Drain #1 was noted to be leaking around the drain, applied a drain sponge with paper tape. Patients IV's secured and patient ambulating in santos. Will continue to closely monitor. NALINI, JAMIE
--- NOTE | 2020-05-24 14:43 | PC.NURSE ---
Passing GAS - Patient is passing gas. SMW, CERTIFIED WELDING INSPECTOR
[2020-05-24 15:42] VITALS: BP 145/81; PULSE 66; RESP 18; TEMP 37.2; O2SAT 93
--- NOTE | 2020-05-24 18:19 | PC.RESP ---
Smoking Cessation information sent to patient.
[2020-05-24 20:00] VITALS: BP 145/81; PULSE 70; RESP 18; TEMP 37.1; O2SAT 93
[2020-05-25] VITALS: BP 133/80; PULSE 70; RESP 18; TEMP 36.8; O2SAT 91
[2020-05-25] MEDS: heparin 5,000 unit/mL INJ 1 mL 5000 UNIT SUBCUT ×2 (03:03→14:58)
[2020-05-25 04:00] VITALS: BP 147/79; PULSE 72; RESP 18; TEMP 37.7; O2SAT 93
[2020-05-25] MEDS: piperacillin-tazobactam 3.375 GM in sodium chloride 0.9% (plus) 50 ML IV ×3 (05:33→22:13)
[2020-05-25] MEDS: dextrose 5%-sod chloride 0.45% 1,000 ML 125 ML IV ×2 (05:35→15:01)
--- NOTE | 2020-05-25 06:15 | PM.PN ---
Subjective Subjective: Interval history: Patient overall feels well yet he did develop a low-grade temperature overnight 100 Fahrenheit. Patient started passing quite a bit of gas yesterday evening and has been tolerating popsicles. Right upper quadrant drain had 10 mL serous and right lower quadrant drain had 90 mL serous Vitals/I&O/Wt Last Vital Signs Temp 100 F H 05/25/20 04:00 Pulse 72 05/25/20 04:00 Resp 18 05/25/20 04:00 BP 147/79 05/25/20 04:00 Pulse Ox 93 05/25/20 04:00 05/24/20 05/24/20 05/25/20 14:59 22:59 06:59 Intake Total 979.167 / 472.841 8082 / 2029.167 1000 / 3029.167 Output Total 1225 / 1225 650 / 1875 1180 / 3055 Balance -245.833 / -245.833 400 / 154.167 -180 / -25.833 Physical Exam Narrative: EXAM NARRATIVE: Patient is conscious alert oriented X3 BMI 21 Head and neck examination PERRLA no masses no cervical lymphadenopathy no jaundice Cardiac examination audible S1-S2 no murmurs no gallops no arrhythmias Chest is clear bilateral,abscence of Rhonchi or wheezes,no surgical emphysema Abdomen mildly tender at the incision sites and drain sites. Nondistended soft no organomegaly guarding or rigidity/no signs of peritonitis Right and lower quadrant drains shows serous output. skin incisions are clean dry and intact Extremities no cyanosis no clubbing no edema Urinary Catheter Management^: Arndt: Cath Placed During This Visit: yes, but has since been removed by the nurse Reason for Continuing Indwelling Catheter: Decision to DC Catheter Urinary Catheter Date of Insertion: 05/21/20 Urinary Catheter Time of Insertion: 17:56 Date Urinary Catheter Removed: 05/23/20 Time Urinary Catheter Discontinued: 06:42 Data : 05/24/20 03:30 05/24/20 03:30 A&P Assessment and plan (1) Perforated viscus: Patient is a status post diagnostic laparoscopy and peritoneal lavage with intra-abdominal drain placements. 05/21/2020. Plan of care; We will start the patient slowly on clear liquid diet once patient tolerates that we will add protein shakes Continue ambulation 3-4 times a day down the santos at least 200 to 300 feet each time. Incentive spirometer every hour will awake Continue pharmacologic DVT prophylax Will monitor patient's temperature and will continue IV antimicrobial therapy Will send for CBC Assurance and education All questions have been answered Status: Acute Attestations Medical Necessity Statement*: Patient will require inpatient hospitalization pass 2 midnights to continue IV antimicrobial therapy and to make sure that the patient is tolerating p.o. intake. Time Spent in Patient Care: 16 - 35 minutes (>than 50% of time spent in counselling and/or direct pt care on unit). 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
[2020-05-25 07:27] LABS: Basophils % 0.2 %; Eosinophils % 0.5 %; Hematocrit 37.1 % (42.0-52.0); Hemoglobin 12.5 g/dL (11.7-16.6); Lymphocytes # 1.1 10^3/uL (0.8-4.8); Lymphocytes % 13.6 %; Mean Corpuscular HGB Conc 33.7 g/dL (30.0-36.0); Mean Corpuscular Hemoglobin 32.7 pg (28.0-34.0); Mean Corpuscular Volume 97.1 fL (80-94); Mean Platelet Volume 9.3 fL (7.4-10.4); Monocytes # 0.8 10^3/uL (0.2-0.9); Monocytes % 10.1 %; Neutrophils # 6.13 10^3/uL (1.8-7.7); Neutrophils % 75.2 %; Nucleated Red Blood Cells % 0 %; Platelet Count 270 10^3/cmm (130-400); Red Blood Count 3.82 10^6/uL (4.1-5.3); White Blood Count 8.2 10^3/uL (4.0-10.0)
[2020-05-25 07:55] VITALS: BP 167/82; PULSE 70; RESP 14; TEMP 36.8; O2SAT 93
[2020-05-25] MEDS: famotidine 20 mg/2 mL INJ IVP ×2 (09:04→22:13)
--- NOTE | 2020-05-25 10:33 | PC.NURSE ---
Pt had a bowel movement with some bright blood. Dr. Jamison notified.
[2020-05-25 11:33] VITALS: BP 128/76; PULSE 78; RESP 16; TEMP 37.1; O2SAT 97
[2020-05-25 15:18] VITALS: TEMP 36.7
[2020-05-25 20:00] VITALS: BP 146/68; PULSE 68; RESP 18; TEMP 36.9; O2SAT 97
[2020-05-26] VITALS: BP 149/70; PULSE 68; RESP 18; TEMP 36.8; O2SAT 93
[2020-05-26 02:53] LABS: Hematocrit 36.8 % (42.0-52.0); Hemoglobin 12.3 g/dL (11.7-16.6)
[2020-05-26 03:08] LABS: INR 1.02 (0.8-1.2)
[2020-05-26 03:17] LABS: Alanine Aminotransferase 19 U/L (0-41); Albumin Level 2.4 g/dL (3.5-5.2); Alkaline Phosphatase 57 IU/L (40-130); Anion Gap 11.2 (5-19); Aspartate Amino Transferase 20 U/L (0-40); Blood Urea Nitrogen 11 mg/dL (6-20); Calcium 7.5 mg/dL (8.5-10.5); Carbon Dioxide 27 mmol/L (22-29); Chloride 103 mmol/L (98-107); Globulin 3.1 g/dL (1.3-4.6); Glomerular Filtration Rate 100.4 mL/min (90-130); Glucose 118 mg/dL (65-115); Osmolality Calculated 286 mOsm/kg (285-295); Potassium 3.2 mmol/L (3.5-5.1); Sodium 138 mmol/L (136-145); Total Bilirubin 0.3 mg/dL (0.15-1.2); Total Protein 5.5 g/dL (6.6-8.7)
[2020-05-26 03:47] VITALS: BP 133/71; PULSE 65; RESP 18; TEMP 36.7; O2SAT 95
--- NOTE | 2020-05-26 05:51 | PC.NURSE ---
Patient without any acute evetns overnight, rested in bed well w/o complaints of pain, spilt sponges to upper and lower right abdomen alexa drain changed, sponges C/D/I, total output from upper right side drain 80cc output and lower right side drain with 70cc output for total shift. patient denies needs at this time, 0 stools, N/V.
--- NOTE | 2020-05-26 06:26 | PM.PN ---
Subjective Subjective: Interval history: Patient continues to pass gas and have bowel movement with bloody specks no active bleeding Tolerating p.o. intake otherwise no acute events overnight and no evidence of spiking fevers anymore Vitals/I&O/Wt Last Vital Signs Temp 98.1 F 05/26/20 03:47 Pulse 65 05/26/20 03:47 Resp 18 05/26/20 03:47 BP 133/71 05/26/20 03:47 Pulse Ox 95 05/26/20 03:47 05/25/20 05/25/20 05/26/20 14:59 22:59 06:59 Intake Total 1770 / 1770 470 / 2240 Output Total 240 / 240 1145 / 1385 1210 / 2595 Balance 1530 / 1530 -675 / 855 -1210 / -355 Physical Exam Narrative: EXAM NARRATIVE: Patient is conscious alert oriented X3 BMI 21 Head and neck examination PERRLA no masses no cervical lymphadenopathy no jaundice Cardiac examination audible S1-S2 no murmurs no gallops no arrhythmias Chest is clear bilateral,abscence of Rhonchi or wheezes,no surgical emphysema Abdomen nontender.Nondistended soft no organomegaly guarding or rigidity/no signs of peritonitis Right and lower quadrant drains shows serous output. skin incisions are clean dry and intact Extremities no cyanosis no clubbing no edema Urinary Catheter Management^: Arndt: Cath Placed During This Visit: yes, but has since been removed by the nurse Reason for Continuing Indwelling Catheter: Decision to DC Catheter Urinary Catheter Date of Insertion: 05/21/20 Urinary Catheter Time of Insertion: 17:56 Date Urinary Catheter Removed: 05/23/20 Time Urinary Catheter Discontinued: 06:42 Data : 05/26/20 02:20 05/26/20 02:20 A&P Assessment and plan (1) Perforated viscus: Patient is a status post diagnostic laparoscopy and peritoneal lavage with intra-abdominal drain placements. 05/21/2020. Plan of care; We will start the patient today on full liquid diet and we will add protein shakes Continue ambulation 3-4 times a day down the santos at least 200 to 300 feet each time. Incentive spirometer every hour will awake Continue pharmacologic DVT prophylax Will monitor patient's temperature and will continue IV antimicrobial therapy Patient continues to do well and tolerate p.o. intake with plan to send home today on oral antibiotics Replacement of potassium. Assurance and education All questions have been answered Status: Resolved Attestations Medical Necessity Statement*: We will plan to discharge patient home today on pain medications and oral antibiotic Time Spent in Patient Care: 16 - 35 minutes (>than 50% of time spent in counselling and/or direct pt care on unit). 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
[2020-05-26 07:30] VITALS: BP 159/74; PULSE 64; RESP 18; TEMP 36.9; O2SAT 95
[2020-05-26] MEDS: famotidine 20 mg/2 mL INJ IVP (08:13)
[2020-05-26] MEDS: heparin 5,000 unit/mL INJ 1 mL 5000 UNIT SUBCUT (08:13)
[2020-05-26] MEDS: piperacillin-tazobactam 3.375 GM in sodium chloride 0.9% (plus) 50 ML IV (08:23)
[2020-05-26 10:58] VITALS: BP 138/78; PULSE 71; RESP 18; TEMP 36.8; O2SAT 93
--- NOTE | 2020-05-26 11:52 | P.DS_ITS ---
Discharge Providers Date of Admission: 05/21/20 15:28 Date of Discharge: May 26, 2020 Attending Provider at Admission: Edd Oh MD Attending Provider at Discharge: Edd Oh MD Diagnoses at Discharge Discharge Diagnosis (1) Perforated viscus: Status: Resolved Reason for Visit Reason for Visit: ABDOMINAL PAIN/ COVID EXPOSURE Hospital Course Hospital Course: Patient maintained to have stable vital signs and good urine output with appropriate tolerance to p.o. intake Discharge Summary: Patient overall did well after surgery in the form of diagnostic laparoscopy and peritoneal lavage and intra-abdominal drain placement. He tolerated p.o. intake and pain is under control. No signs of sepsis and resolution of symptoms. He did encounter some specks of bloody content in his stools but that subsided and he did have a larger bowel movement without any blood. Patient was taught how to take care of the drains at home and he will follow-up with me in 1 week in addition we will plan to perform a colonoscopy in 6 to 8 weeks from such an episode. Plan to discharge patient home today on oral pain medications and antimicrobial therapy Physical Exam Narrative: EXAM NARRATIVE: Patient is conscious alert oriented X3 BMI 21 Head and neck examination PERRLA no masses no cervical lymphadenopathy no jaundice Cardiac examination audible S1-S2 no murmurs no gallops no arrhythmias Chest is clear bilateral,abscence of Rhonchi or wheezes,no surgical emphysema Abdomen nontender.Nondistended soft no organomegaly guarding or rigidity/no signs of peritonitis Right and lower quadrant drains shows serous output. skin incisions are clean dry and intact Extremities no cyanosis no clubbing no edema Urinary Catheter Management^: Arndt: Cath Placed During This Visit: yes, but has since been removed by the nurse Reason for Continuing Indwelling Catheter: Decision to DC Catheter Urinary Catheter Date of Insertion: 05/21/20 Urinary Catheter Time of Insertion: 17:56 Date Urinary Catheter Removed: 05/23/20 Time Urinary Catheter Discontinued: 06:42 Discharge Data Data Completed and Pending: Completed Studies During Hospitalization Category Date Time Status CT abdomen pelvis w con* [id number] Urge nt Cat Scan 05/21/20 12:21 Completed Pending at discharge Category Date Time Status ES surgery / GI i mages Routine Exams 05/21/20 16:47 Ordered Labs from last 24 hours 05/26/20 05/26/20 05/26/20 02:20 02:20 02:20 Hgb 12.3 Hct 36.8 L PT 13.80 INR 1.02 APTT 29.0 Sodium 138 Potassium 3.2 L Chloride 103 Carbon Dioxide 27 Anion Gap 11.2 BUN 11 Creatinine 0.8 GFR Calculation 100.4 Glucose 118 H Calculated Osmolal ity 286 Calcium 7.5 L Total Bilirubin 0.3 AST 20 ALT 19 Alkaline Phosphata se 57 Total Protein 5.5 L Albumin 2.4 L Globulin 3.1 Vitals: Last Vital Signs Temp 98.3 F 05/26/20 10:58 Pulse 71 05/26/20 10:58 Resp 18 05/26/20 10:58 BP 138/78 05/26/20 10:58 Pulse Ox 93 05/26/20 10:58 Discharge Plan Discharge Patient Disposition: Home Condition: Stable Prescriptions: New ciprofloxacin HCl 500 mg tablet 500 mg PO BID Qty: 14 RF: 0 Flagyl 500 mg tablet 500 mg PO Q8H 7 Days Qty: 21 RF: 0 River 5-325 mg tablet 1 tab PO Q6H PRN (Reason: pain) Qty: 28 RF: 0 potassium chloride 20 mEq tablet extended release 20 meq PO DAILY Qty: 1 RF: 0 Discharge Orders: Discharge Order (Routine); Ordered 05/26/20 Ordered By: Edd Oh Referrals: [facility] [Other] (Come by the [facility], [address] [place] [address], [address] (east side of [facility]) Tuesdays & between 9 AM & 11 AM. A Clinic volunteer will assist you in the process of registering for Clinic services. Please allow 45 minutes.) Edd Oh MD [Physician] - 06/03/20 3:45 pm (Return to surgery office in 1 week. You have an appointment on June 03 at 3:45) Discharge Diet: GI Soft Discharge Activity: Limit activity as instructed Patient Instructions: Ciprofloxacin (By mouth), Oxycodone/Acetaminophen (By mouth), Metronidazole (By mouth) Activity Restrictions/Additional Instructions: 1. Patient can shower after 48 hours from surgery 2. Remove Dermabond 7 to 10 days after surgery, if there is a secondary dressing can take down after 48 hours. 3. Up and walking as tolerated 4. Do lift more than 5 pounds first 2 weeks after surgery and not more than 25 pounds 6 to 8 weeks after surgery. 5. Do not operate heavy machinery or drive while using pain medications. 6.Contact the office or return to the ER for worsening nausea vomiting fevers or chills, or noticing any redness around incision sites or discharge. 7. Avoid constipation can use Metamucil daily Discharge Date/Time: 05/26/20 13:53 Discharge Attestations Time Spent in Discharge Care*: less than 30 min Specific Discharge Activities: Specific discharge activities: educating patient Time Spent in Smoking Cessation: Time spent discussing smoking cessation with patient: 3 to 10 minutes Status at Discharge: Cognitive status at discharge: cognitively intact , Behavioral status at discharge: cooperative , Functional status at discharge: independent ambulation Overall status at discharge: patient is progressing back to baseline Quality Metrics Clinical Quality Measures During this hospital stay, did patient experience: None Coding Level of Care Code Acute [employer] History Problem Focused Exam Problem Focused Medical Decision Making Straight Forward Diagnoses Perforated viscus R19.8 Time Spent (min) 30
--- NOTE | 2020-05-26 13:05 | PC.NURSE ---
Discharge instructions given to patient and patient verbalized understanding of instructions. Teaching done on stripping and empting drains, patient verbalized understanding. Patient waiting on ride home.
--- NOTE | 2020-05-26 13:13 | PC.NURSE ---
protein shakes provided to patient as requested by Dr Oh.
--- NOTE | 2020-05-26 13:47 | PC.NURSE ---
patient taken to private vehicle via wheelchair by staff.
[2020-05-26 13:49] VITALS: BP 138/78; PULSE 71; RESP 18; TEMP 36.8; O2SAT 93
== END 2020-05-26 13:53 | disposition home or self-care (01) | DRG 393 ==
LOC: ER 15:40 → MEDSURG 15:54
PROVIDERS: Emergency Medicine; Admitting Provider Surgery; Visit Provider Surgery
PROC: 3E1M38X Irrigation of Peritoneal Cavity using Irrigating Substance, Percutaneous Approach, Diagnostic (ICD-10-PCS; CPT 49320; 2020-05-21 15:30)
DX: K63.1 Perforation of intestine (nontraumatic) (principal); K65.9 Peritonitis, unspecified; F17.210 Nicotine dependence, cigarettes, uncomplicated; F12.90 Cannabis use, unspecified, uncomplicated
CPT/HCPCS: 12345; 36415; 51702; 74177; 80048; 80053; 81003; 82378; 83605; 83690; 85014; 85018; 85025; 85610; 85730; 86140; 87426; 96372; 96375; 99283; J0131; J0330; J0694; J1100; J1170; J1644; J2250; J2270; J2405; J2543; J2704; J2710; J3010; J3490; J7030; J7799; Q9967

== ENCOUNTER 2020-07-12 09:11 | Outpatient (CLI) | payer SELFPAY ==
--- NOTE | 2020-07-12 10:30 | CT_ITS ---
WS: [id number] CT ABDOMEN PELVIS TECHNIQUE: Contrast-enhanced CT of the abdomen and pelvis with coronal and sagittal reformatted image s. CLINICAL INFORMATION: perforated viscus COMPARISON: CT abdomen pelvis May 21, 2020 DLP: 337.[address] scans at [facility] use at least one of these dose optimization techniques: automat ed exposure control; mA and/or kV adjustment per patient size (includes targeted exams where dose is matched to clinical indication); or iterative reconstruction. FINDINGS: Slight subsegmental atelectasis in the lung bases. Liver is normal in appearance. Normal gallbladder. Normal portal vein and splenic vein. Pancreas is normal. Normal spleen. Normal GE junction. Adrenal glands are normal. Normal renal parenchymal enhancement. No hydronephrosis. Horseshoe kidney configur ation. Normal caliber abdominal aorta. Aortic calcification. Prostate calcification. Previously described intraperitoneal air has resolved. Diffuse thickening with inflammatory stranding involving the sigmoid colon is persistent but improved compared to previous. No drainable abscess or fluid collection. Previously described possible mass the sigmoid colon appears improved in the inte rim. Remainder of the small bowel and colon are normal in appearance today. CT/CT abdomen pelvis w con* [id number] IMPRESSION: 1. Previously described free intraperitoneal air has resolved. 2. Again seen is diffuse thickening and induration involving the sigmoid colon persistent but improved since the prior examination. Previously described mass at the sigmoid colon also appears improved. Recommend correlation with sigmoid oscopy. 3. Remainder of the small bowel and colon are normal in appearance today. 4. Horseshoe kidney. 5. Resolution of the previously described peritonitis and ascites. 6. No other significant changes.
[2020-07-12] MEDS: iohexol 300 mg/mL 100 mL Btl IV (11:06)
[2020-07-12] MEDS: iohexol 300 mg/mL 50 mL Btl PO (11:06)
== END 2020-07-12 09:12 | disposition home or self-care (01) ==
PROVIDERS: Visit Provider Surgery
DX: R19.8 Other specified symptoms and signs involving the digestive system and abdomen (principal); K63.1 Perforation of intestine (nontraumatic); Q63.1 Lobulated, fused and horseshoe kidney
CPT/HCPCS: 74177

== ENCOUNTER → 2024-10-31 14:26 | Outpatient (BNVA) | payer SELFPAY | PROVIDERS: Visit Provider Family Medicine | DX: Z13.6 Encounter for screening for cardiovascular disorders (principal) | CPT/HCPCS: 80061; 82947; 83036 ==

== ENCOUNTER 2025-05-15 14:36 | Outpatient (CLI) | payer SELFPAY ==
--- NOTE | 2025-05-15 15:45 | US_ITS ---
WS: [id number] TESTICULAR ULTRASOUND HISTORY: swollen testicles COMPARISON: None available. TECHNIQUE: Real-time and color Doppler imaging utilized to perform a testicular ultrasound. Right testicle: 4.2 cm x 3.1 cm x 2.4 cm. Normal size and echogenicity. No mass or torsion. Increased color Doppler in the RIGHT testicle. There is no mass. Moderate size mildly complex hydrocele surrounding the testicle. Right epididymis: Epididymis is enlarged and heterogeneous with increased vascularity. Left testicle: 3.9 cm x 2.5 cm x 2.3 cm. Normal size and echogenicity. No mass or torsion. Increased color Doppler throughout the testicle. Small complex hydrocele. Left epididymis: Increased vascularity within the epididymis. Epididymis is heterogeneous. US/US scrotum [id number] IMPRESSION: 1. Findings of acute bilateral epididymo-orchitis. 2. Bilateral mildly complex hydroceles, RIGHT greater than LEFT.
== END 2025-05-15 14:37 | disposition home or self-care (01) ==
LOC: RAD 14:39
PROVIDERS: Visit Provider Emergency Medicine
DX: N45.2 Orchitis (principal)
CPT/HCPCS: 76870; 87491; 87591; 87661

== ENCOUNTER → 2025-05-29 11:38 | Outpatient (BNVA) | payer SELFPAY | PROVIDERS: PCP Family Medicine; Visit Provider Family Medicine | DX: R89.9 Unspecified abnormal finding in specimens from other organs, systems and tissues (principal); N45.1 Epididymitis; Z12.5 Encounter for screening for malignant neoplasm of prostate; Z13.6 Encounter for screening for cardiovascular disorders | CPT/HCPCS: 80053; 80074; 82607; 82746; 85025; 86592; 87086; 87806; G0103 ==